=== PATIENT | female | born 2000 | race Two or more races ===

== ENCOUNTER → 2023-03-11 | Emergency (ER) | payer OTHER ==
[~2023-03-11] VITALS: Ht 160 cm; Wt 61.2 kg
[~2023-03-11] MED LIST: DIALYVITE 800800 MCG PO
== END | disposition left against medical advice (07) ==
LOC: ER 20:18
DX: Z53.21 Procedure and treatment not carried out due to patient leaving prior to being seen by health care provider (principal)

== ENCOUNTER 2023-03-12 18:39 | Outpatient (CLI) | payer OTHER | END 2023-03-12 18:52 | disposition home or self-care (01) | LOC: NST 18:39 | PROVIDERS: ATTEND Specialist | DX: Z34.83 Encounter for supervision of other normal pregnancy, third trimester (principal) ==

== ENCOUNTER 2023-04-13 11:56 | Inpatient (IN) | payer OTHER ==
[~2023-04-13] VITALS: Ht 160 cm; Wt 62.6 kg
[2023-04-13 10:04] LABS: PH,URINE 6.5 (5.0-8.0); URINE APPEARANCE Cloudy; URINE BILIRRUBIN Negative (NEGATIVE); URINE BLOOD Negative; URINE COLOR Yellow; URINE GLUCOSE Negative (NEGATIVE); URINE LEUKOCYTE Large; URINE NITRATE Negative; URINE PROTEIN Negative (NEGATIVE)
[2023-04-13 10:06] LABS: URINE BACTERIA 9376.8 uL (0.0-1933); URINE WBC 271.9 uL (0.0-23.2)
[2023-04-13 10:31] LABS: URINE EPITHELIAL CELLS > 201.7 uL (0.0-38.8)
[2023-04-13 10:45] LABS: HEMATOCRIT 36.8 % (36.0-45.00); HEMOGLOBIN 12.2 g/dL (12.0-15.00); MEAN CELL VOLUME 85.6 fL (80.00-100.00); MEAN CORPUSCULAR HEMOGLOBIN 28.3 pg (27.00-32.0); MEAN CORPUSCULAR HGB CONC 33.1 g/dl (32.0-36.0); PLATELET COUNT 194 K/uL (150-450); RED CELL DISTRIBUTION WIDTH 14.5 % (11.5-14.5)
[2023-04-13 10:59] LABS: INR 0.95; PARTIAL THROMBOPLASTIN TIME 29.9 SECONDS (22.0-34.0)
[2023-04-13 11:09] LABS: ALBUMIN 3.1 gm/dL (3.4-5.0); BILIRUBIN TOTAL 0.31 mg/dL (0.3-1.2); CALCIUM 9.2 mg/dL (8.5-10.1); CREATININE SERUM 0.46 mg/dL (0.55-1.02); GFR 165.51; GLOBULINA 4.1 G/DL (2.4-3.5); POTASSIUM 4.28 mEq/L (3.5-5.1); TOTAL PROTEIN 7.2 gm/dL (6.4-8.2)
[2023-04-18 02:46] LABS: HEMATOCRIT 34.6 % (36.0-45.00); HEMOGLOBIN 11.4 g/dL (12.0-15.00); MEAN CELL VOLUME 84.5 fL (80.00-100.00); MEAN CORPUSCULAR HEMOGLOBIN 27.9 pg (27.00-32.0); RED CELL DISTRIBUTION WIDTH 14.4 % (11.5-14.5)
[2023-04-18 03:19] LABS: PLATELET COUNT 213 K/uL (150-450)
== END 2023-04-19 14:46 | disposition home or self-care (01) | DRG 785 ==
LOC: OB/GYN 04-17 05:48 → O/R 04-17 05:48 → LDR 04-17 08:19 → OB/GYN 04-17 09:52
PROVIDERS: ADMIT Specialist; ATTEND Specialist
PROC: 0UB70ZZ Excision of Bilateral Fallopian Tubes, Open Approach (ICD-10-PCS; 2023-04-17)
PROC: 4A1HXCZ Monitoring of Products of Conception, Cardiac Rate, External Approach (ICD-10-PCS; 2023-04-17)
PROC: 10D00Z1 Extraction of Products of Conception, Low, Open Approach (ICD-10-PCS; principal; 2023-04-17 09:00)
DX: O34.211 Maternal care for low transverse scar from previous cesarean delivery (principal); Z3A.38 38 weeks gestation of pregnancy; Z37.0 Single live birth; Z30.2 Encounter for sterilization; Z20.822 Contact with and (suspected) exposure to COVID-19